=== PATIENT | female | born 1980 | race Two or more races ===

== ENCOUNTER 2018-08-10 21:13 | Emergency (ER) | payer OTHER ==
[~2018-08-10] VITALS: Ht 160 cm; Wt 79.4 kg
[~2018-08-10 21:13] MED LIST: 12-HOUR CO30 MG/5 ML PO; ALBU90OI; ALBU90OI6 INH; Bactrim Ds Tab1 EACH PO; CYCL10 PO; HYDR1TAB94 PO; Norco 5-325 Ta1 EACH PO; OXYACE5T PO; Percocet 5-3251 EACH PO; RXOXYACE PO; Valium5 MG PO
[2018-08-11 00:47] LABS: BASOPHILS ABSOLUTE AUTO 0.04 K/mm3 (0.00-0.23); BASOPHILS PERCENT AUTO 0 % (0-2); EOSINOPHILS ABSOLUTE AUTO 0.18 K/mm3 (0.00-0.68); EOSINOPHILS PERCENT AUTO 1 % (0-6); Hematocrit 42.4 % (33.0-51.0); Hemoglobin 14.2 g/dL (11.5-16.0); IMMATURE GRAN ABSOLUTE AUTO 0.04 K/mm3 (0.00-0.10); IMMATURE GRAN PERCENT AUTO 0 % (0-1); LYMPHOCYTES ABSOLUTE AUTO 2.29 K/mm3 (0.84-5.20); LYMPHOCYTES PERCENT AUTO 17 % (21-46); MONOCYTES PERCENT AUTO 7 % (4-13); Mean Corpuscular HGB 31.8 pg (26.0-34.0); Mean Corpuscular HGB Conc 33.5 g/dL (31.5-36.5); Mean Corpuscular Volume 95 fL (80-100); Mean Platelet Volume 11.9 fL (9.1-12.4); NEUTROPHILS PERCENT AUTO 74 % (41-73); Platelet Count 206 K/mm3 (150-400); RDW Coefficient Variation 12.2 % (11.7-14.2); RDW Standard Deviation 43.1 fL (35.1-46.3); Red Blood Cell Count 4.46 M/mm3 (3.80-5.20); White Blood Cell Count 13.75 K/mm3 (4.00-11.30)
[2018-08-11] MEDS ORDERED: Norco 5-325 Ta1 EACH PO (01:03)
[2018-08-11] MEDS ORDERED: Bactrim Ds Tab1 EACH PO (01:03)
[2018-08-11] MEDS ORDERED: IBUP800 PO (01:03)
[2018-08-11] MEDS ORDERED: CEPH500 PO (01:03)
[2018-08-11 01:04] LABS: Anion Gap 9 mmol/L (6-16); Blood Urea Nitrogen 16 mg/dL (8-24); Bun/Creatinine Ratio 21.9 (12.0-20.0); CO2, Blood 24 mmol/L (21-32); Chloride, Blood 109 mmol/L (98-108); Creatinine, Blood 0.73 mg/dL (0.40-1.00); Glomerular Filtration Rate >60 (60-); Glucose, Blood 102 mg/dL (70-99); Potassium, Blood 3.4 mmol/L (3.5-5.5); Sodium, Blood 142 mmol/L (136-145)
[2018-10-04] MEDS ORDERED: Citalopram HBr10 MG PO (14:32)
[2018-10-04] MEDS ORDERED: LISI20 PO (14:32)
[2018-10-04] MEDS ORDERED: BACL10 PO (14:33)
[2018-10-04] MEDS ORDERED: NAPR500 PO (14:33)
[2018-10-04] MEDS ORDERED: TRAM50 PO (14:33)
== END 2018-08-11 01:30 | disposition home or self-care (01) ==
LOC: ER 21:13
PROVIDERS: Emergency Medicine
DX: L03.115 Cellulitis of right lower limb (principal); I10 Essential (primary) hypertension
CPT/HCPCS: 36415; 80048; 85025; 93971; 96365; 96375; 99284-25; A9270; J0690; J1885

== ENCOUNTER 2018-10-11 11:53 | Day surgery (SDC) | payer OTHER ==
[~2018-10-11] VITALS: Ht 160 cm; Wt 78.3 kg
[~2018-10-11 11:53] MED LIST changes: +BACL10 PO; +CEPH500 PO; +Citalopram HBr10 MG PO; +IBUP800 PO; +LISI20 PO; +NAPR500 PO; +TRAM50 PO
[2018-10-11] MEDS ORDERED: ALBU90OI (12:56)
--- NOTE | 2018-10-11 13:39 | NUR ---
10/11/18 1339 Asad Garcia LATE ENTRY-1319 DR GLASS IN ROOM AND TIME OUT DONE. DR GLASS INJECTED 0.5% MARCAINE WITH EPINEPHRINE 1:200,000 10ML IN RIGHT HAND AND WRIST. PATIENT TOLERATED THE PROCEDURE WELL.
== END 2018-10-11 14:52 | disposition home or self-care (01) ==
LOC: ORSCSDS 11:53
PROVIDERS: Orthopaedic Surgery
PROC: 01N54ZZ Release Median Nerve, Percutaneous Endoscopic Approach (ICD-10-PCS; principal; 2018-10-11 13:00)
DX: G56.01 Carpal tunnel syndrome, right upper limb (principal); I10 Essential (primary) hypertension; J45.909 Unspecified asthma, uncomplicated; G35 Multiple sclerosis; Z79.899 Other long term (current) drug therapy
CPT/HCPCS: J0690; J2250; J7120

== ENCOUNTER 2019-02-07 20:45 | Inpatient (IN) | payer OTHER ==
[~2019-02-07] VITALS: Ht 160 cm; Wt 88.0 kg
[2019-02-07 21:27] LABS: Source, Urine Clean Catch
[2019-02-07 21:31] LABS: Appearance, Urine Clear (Clear); Bilirubin, Urine Neg (Neg); Blood, Urine Neg (Neg); Color, Urine Yellow (P-Yellow); Glucose Qualitative, Urine Neg (Neg); Ketones, Urine 1+ (Neg); Leukocyte Esterase, Urine 1+ (Neg); Nitrite, Urine Neg (Neg); Protein, Urine Neg (Neg); Urobilinogen, Urine NORM (Normal)
[2019-02-07 21:40] LABS: Bacteria Few /hpf; Red Blood Cells, Urine Not Seen /hpf (0-2); Squamous Epithelial Cells Rare /hpf (Few); White Blood Cells, Urine 0-2 /hpf (0-5)
[2019-02-07 22:14] LABS: BASOPHILS ABSOLUTE AUTO 0.08 K/mm3 (0.00-0.23); BASOPHILS PERCENT AUTO 1 % (0-2); EOSINOPHILS ABSOLUTE AUTO 0.24 K/mm3 (0.00-0.68); EOSINOPHILS PERCENT AUTO 3 % (0-6); Hematocrit 40.1 % (33.0-51.0); Hemoglobin 13.3 g/dL (11.5-16.0); IMMATURE GRAN ABSOLUTE AUTO 0.03 K/mm3 (0.00-0.10); IMMATURE GRAN PERCENT AUTO 0 % (0-1); LYMPHOCYTES ABSOLUTE AUTO 4.25 K/mm3 (0.84-5.20); LYMPHOCYTES PERCENT AUTO 47 % (21-46); MONOCYTES ABSOLUTE AUTO 0.81 K/mm3 (0.16-1.47); MONOCYTES PERCENT AUTO 9 % (4-13); Mean Corpuscular HGB 31.5 pg (26.0-34.0); Mean Corpuscular HGB Conc 33.2 g/dL (31.5-36.5); Mean Corpuscular Volume 95 fL (80-100); NEUTROPHILS ABSOLUTE AUTO 3.71 K/mm3 (1.96-9.15); NEUTROPHILS PERCENT AUTO 41 % (41-73); Platelet Count 257 K/mm3 (150-400); RDW Coefficient Variation 12.5 % (11.7-14.2); RDW Standard Deviation 43.5 fL (35.1-46.3); Red Blood Cell Count 4.22 M/mm3 (3.80-5.20); White Blood Cell Count 9.12 K/mm3 (4.00-11.30)
[2019-02-07 22:33] LABS: Alanine Aminotransfer (ALT/SGP 21 U/L (12-78); Albumin, Blood 3.8 g/dL (3.4-5.0); Albumin/Globulin Ratio 1.1 (0.8-1.8); Alk Phos 78 U/L (50-136); Anion Gap 5 mmol/L (6-16); Aspartate Aminotrans (AST/SGOT 6 U/L (12-37); Bilirubin, Total 0.2 mg/dL (0.1-1.0); Blood Urea Nitrogen 20 mg/dL (8-24); Bun/Creatinine Ratio 22.6 (12.0-20.0); CO2, Blood 27 mmol/L (21-32); Calcium, Blood 8.5 mg/dL (8.5-10.1); Chloride, Blood 108 mmol/L (98-108); Creatinine, Blood 0.89 mg/dL (0.40-1.00); Globulin, Blood 3.6 g/dL (2.2-4.0); Glomerular Filtration Rate >60 (60-); Glucose, Blood 84 mg/dL (70-99); Potassium, Blood 3.7 mmol/L (3.5-5.5); Sodium, Blood 140 mmol/L (136-145); Total Protein, Blood 7.4 g/dL (6.4-8.2)
--- NOTE | 2019-02-08 06:16 | NUR ---
SHIFT SUMMARY PT NEW ADMIT THIS AM. [id number]. NPO. DISCOMFORT AT TOLERABLE LEVEL SINCE ADMISSION TO FLOOR. NO NAUSEA/EMESIS. PT REPORTING DISCOMFORT X2 MONTHS, INCREASED PAST 2 WEEKS. VS NOTED. PT ORIENTED TO ROOM + CALL LIGHT USE. PT RESTING WELL THIS AM, NADN WITH CALL LIGHT IN REACH.
--- NOTE | 2019-02-08 06:55 | NUR ---
recvd report from previous shift RN Julián, pt sleeping in room, call light within reach, bed in lowest position, bed rails up x 2
--- NOTE | 2019-02-08 08:30 | NUR ---
dr keller rounding on pt
--- NOTE | 2019-02-08 12:00 | NUR ---
PT TRANSFERRED TO DAYSURGERY VIA STRETCHER
--- NOTE | 2019-02-08 12:08 | NUR ---
History, Chart, Medications and Allergies reviewed before start of procedure.Lungs clear T/O to Auscultation. Pre-Op teaching done. Pt verbalizes understanding. Patient confirms NPO status and agrees with scheduled surgery. PT'S URINE HAD SPECIFIC GRAVITY OF 1.005. SERUM HCG WAS ORDERED AND PERFORMED. EKG ALSO PERFORMED STANDARD ORDER OF ANESTHESIOLOGIST.
--- NOTE | 2019-02-08 14:48 | NUR ---
DR. JIMENEZ, DR. THOMPSON AND OR, RN HAVE BEEN AT BEDSIDE. PT SET FOR 1500 PROCEDURE. PT COMFORTABLE
--- NOTE | 2019-02-08 17:19 | NUR ---
FOLLOWED UP WITH CAR WASHER, PT STILL IN SURGERY. UPDATED PT'S FAMILY
--- NOTE | 2019-02-08 18:35 | NUR ---
pt returned to room via stretcher, a/o x 4, pleasant/cooperative, post op vs commenced, BP 173/112, provided analgesia per MAR. family in room with pt. pt tolerating clear liquid, no nausea.
--- NOTE | 2019-02-08 19:40 | NUR ---
1939: PT JUSTUS INSERTION SITE DRESSING CHANGED FOR MODERATE SATURATION WITH SANGUINOUS DRAINAGE AND OOZING AT INSERTION SITE. JUSTUS EMPTIED AND SET TO BULB SUCTION; TUBING STRIPPED WELL. LINENS CHANGED, PT MOVES WELL IN BED. CONTINUE TO MONITOR DRAINAGE APPEARANCE AND AMOUNT. PT C/O MILD HEADACHE AND IS ACTIVELY BELCHING; DENIES NAUSEA, DIZZINESS, SOB, CHEST PRESSURE, NUMBNESS/TINGLING.
--- NOTE | 2019-02-09 04:23 | NUR ---
SHIFT SUMMARY POD 1 S/P LAP MANDO. ABD DRESSINGS C/D/I WITH NO DRAINAGE. JUSTUS IN PLACE, COMPRESSED, AND DRAINING SANGUINEOUS FLUID. WILL CONT TO MONITOR FOR DRAINAGE AND CHANGE DRESSING PRN. PT AMBULATING IND IN HALLWAY AND ROOM. TOLERATING CL DIET. REPORTS PASSING FLATUS AND VOIDING WITHOUT DIFFICULTY. PAIN MANAGED WITH PO MEDICATIONS, AMBULATION, REPOSITIONING, AND HEAT THERAPY. HTN APPEARS RESOLVED AFTER RESUMING HOME MEDICATION. PT CURRENTLY RESTING IN ROOM WITH CALL LIGHT WITHIN REACH.
--- NOTE | 2019-02-09 05:00 | NUR ---
JUSTUS DRAIN JUSTUS DRESSING CHANGED 4 TIMES DURING SHIFT R/T DRAINAGE AROUND THE BOTTOM OF THE INSERTION SITE. JUSTUS IN PLACE AND COMPRESSED WITH SANGUINEOUS DRAINAGE. PT DENIES ANY DISCOMFORT R/T DRAIN. AT 0500 PT WAS GOING TO THE BATHROOM WHEN JUSTUS PRODUCED GUSH THAT RESULTED IN SATURATED DRESSING. PT BP DROPPED TO 86/63 BUT QUICKLY RETURNED TO 107/68. SINCE THAT EPISODE DRESSING HAS BEEN C/D/I W/JUSTUS BULB COMPRESSED AND DRAINING. PT IS CURRENTLY RESTING IN BED WITH NO COMPLAINTS. REPORT GIVEN TO ONCOMING RN.
[2019-02-09 05:46] LABS: Alanine Aminotransfer (ALT/SGP 32 U/L (12-78); Albumin, Blood 3.4 g/dL (3.4-5.0); Alk Phos 58 U/L (50-136); Anion Gap 10 mmol/L (6-16); Aspartate Aminotrans (AST/SGOT 26 U/L (12-37); Bilirubin, Total 0.9 mg/dL (0.1-1.0); Blood Urea Nitrogen 10 mg/dL (8-24); Bun/Creatinine Ratio 16.4 (12.0-20.0); CO2, Blood 22 mmol/L (21-32); Calcium, Blood 8.7 mg/dL (8.5-10.1); Chloride, Blood 102 mmol/L (98-108); Creatinine, Blood 0.61 mg/dL (0.40-1.00); Globulin, Blood 3.4 g/dL (2.2-4.0); Glomerular Filtration Rate >60 (60-); Glucose, Blood 140 mg/dL (70-99); Potassium, Blood 4.4 mmol/L (3.5-5.5); Sodium, Blood 134 mmol/L (136-145); Total Protein, Blood 6.8 g/dL (6.4-8.2)
[2019-02-09 08:54] LABS: Hematocrit 34.4 % (33.0-51.0); Hemoglobin 11.4 g/dL (11.5-16.0)
[2019-02-09 10:10] LABS: Hematocrit 31.4 % (33.0-51.0); Hemoglobin 10.4 g/dL (11.5-16.0)
--- NOTE | 2019-02-09 10:28 | NUR ---
BLEEDING AROUND JUSTUS SITE DRESSING AROUND JUSTUS SITE HAS BEEN CHANGED X3 SINCE CARE ASSUMED OF THE PT. BLEEDING APPEARS TO BE INCREASING AND IS A SLOW OOZE AT THIS TIME. WILL CONTINUE TO MONITOR AND NOTIFY DR. JIMENEZ.
--- NOTE | 2019-02-09 10:41 | NUR ---
DR. BARBARA CHANCEFIED OF OOZING FROM SITE AND CURRENT H&H. WILL CONTINUE TO MONITOR FOR CHANGES. WILL ASSESS VS Q HOUR PER DR. BRUCE.
[2019-02-09 11:59] LABS: Hematocrit 28.3 % (33.0-51.0); Hemoglobin 9.4 g/dL (11.5-16.0)
[2019-02-09 14:16] LABS: Hematocrit 30.7 % (33.0-51.0); Hemoglobin 10.4 g/dL (11.5-16.0)
--- NOTE | 2019-02-09 18:12 | NUR ---
SHIFT SUMMARY PAIN HAS BEEN MANAGED WITH PO PAIN MEDICATION THIS SHIFT. BLEEDING FROM AROUND JUSTUS DRAIN HAS SLOWED, AND OUTPUT IN JUSTUS DRAIN HAS DECREASED T/O THE SHIFT. VS MONITORING HAS BEEN INCREASED. INCREASED MONITORING OF H&H. PT IS TOLERATING CLEAR LIQUIDS WELL. VSS, WILL MONITOR UNTIL REPORT TO ONCOMING RN.
[2019-02-09 18:24] LABS: Hematocrit 29.7 % (33.0-51.0); Hemoglobin 9.7 g/dL (11.5-16.0)
[2019-02-10 04:10] LABS: BASOPHILS ABSOLUTE AUTO 0.04 K/mm3 (0.00-0.23); BASOPHILS PERCENT AUTO 0 % (0-2); EOSINOPHILS ABSOLUTE AUTO 0.08 K/mm3 (0.00-0.68); EOSINOPHILS PERCENT AUTO 1 % (0-6); Hematocrit 25.9 % (33.0-51.0); Hemoglobin 8.3 g/dL (11.5-16.0); IMMATURE GRAN ABSOLUTE AUTO 0.04 K/mm3 (0.00-0.10); IMMATURE GRAN PERCENT AUTO 0 % (0-1); LYMPHOCYTES ABSOLUTE AUTO 3.32 K/mm3 (0.84-5.20); LYMPHOCYTES PERCENT AUTO 35 % (21-46); MONOCYTES ABSOLUTE AUTO 0.86 K/mm3 (0.16-1.47); MONOCYTES PERCENT AUTO 9 % (4-13); Mean Corpuscular Volume 97 fL (80-100); NEUTROPHILS ABSOLUTE AUTO 5.14 K/mm3 (1.96-9.15); NEUTROPHILS PERCENT AUTO 54 % (41-73); Platelet Count 186 K/mm3 (150-400); RDW Coefficient Variation 12.7 % (11.7-14.2); RDW Standard Deviation 45.1 fL (35.1-46.3); Red Blood Cell Count 2.68 M/mm3 (3.80-5.20); White Blood Cell Count 9.48 K/mm3 (4.00-11.30)
[2019-02-10 04:24] LABS: International Normalized Ratio 1.1; Prothrombin Time Results 11.6 Sec (9.7-11.5)
[2019-02-10 04:32] LABS: Alanine Aminotransfer (ALT/SGP 24 U/L (12-78); Alk Phos 48 U/L (50-136); Anion Gap 7 mmol/L (6-16); Aspartate Aminotrans (AST/SGOT 14 U/L (12-37); Bilirubin, Total 0.6 mg/dL (0.1-1.0); Blood Urea Nitrogen 9 mg/dL (8-24); Bun/Creatinine Ratio 14.3 (12.0-20.0); CO2, Blood 25 mmol/L (21-32); Chloride, Blood 109 mmol/L (98-108); Creatinine, Blood 0.63 mg/dL (0.40-1.00); Globulin, Blood 2.9 g/dL (2.2-4.0); Glomerular Filtration Rate >60 (60-); Glucose, Blood 102 mg/dL (70-99); Potassium, Blood 3.6 mmol/L (3.5-5.5); Sodium, Blood 141 mmol/L (136-145); Total Protein, Blood 5.9 g/dL (6.4-8.2)
--- NOTE | 2019-02-10 07:32 | NUR ---
SUMMARY DR JIMENEZ ROUNDING THIS AM. ORDERS FOR REPEAT LAB 10 AM AND WILL DECIDE AT THAT TIME IF CHANGES. PT ALERT. DISCUSSED PLAN OF CARE WITH DR JIMENEZ.
[2019-02-10 13:43] LABS: Hemoglobin 8.8 g/dL (11.5-16.0)
--- NOTE | 2019-02-10 15:32 | NUR ---
DR. JIMENEZ AWARE OF H&H OF 8.8 AND 27.0. VSS. WILL CONTINUE TO MONITOR.
--- NOTE | 2019-02-10 18:16 | NUR ---
SHIFT SUMMARY PAIN HAS BEEN MANAGED WITH PO PAIN MEDICATION. PT HAS HAD NO FURTHER BLEEDING AROUND JUSTUS SITE AND DRAINAGE INTO JUSTUS HAS DECREASED. PT REPORTS SHE HAS PASSED FLATUS. SHE IS TOLERATING A REGULAR DIET. VSS. WILL CONTINUE TO MONITOR.
--- NOTE | 2019-02-11 00:24 | NUR ---
ASSUMED CARE OF PT. LYING IN BED, NO DISTRESS NOTED. PT DENIES NEEDS AT THIS TIME. WILL CONT TO MONITOR AND TX PER ORDERS.
[2019-02-11 04:51] LABS: BASOPHILS ABSOLUTE AUTO 0.04 K/mm3 (0.00-0.23); BASOPHILS PERCENT AUTO 1 % (0-2); EOSINOPHILS PERCENT AUTO 1 % (0-6); Hematocrit 23.6 % (33.0-51.0); Hemoglobin 7.7 g/dL (11.5-16.0); IMMATURE GRAN ABSOLUTE AUTO 0.04 K/mm3 (0.00-0.10); IMMATURE GRAN PERCENT AUTO 1 % (0-1); LYMPHOCYTES ABSOLUTE AUTO 2.79 K/mm3 (0.84-5.20); LYMPHOCYTES PERCENT AUTO 36 % (21-46); MONOCYTES ABSOLUTE AUTO 0.67 K/mm3 (0.16-1.47); MONOCYTES PERCENT AUTO 9 % (4-13); Mean Corpuscular HGB 31.8 pg (26.0-34.0); Mean Corpuscular HGB Conc 32.6 g/dL (31.5-36.5); Mean Corpuscular Volume 98 fL (80-100); Mean Platelet Volume 11.3 fL (9.1-12.4); NEUTROPHILS ABSOLUTE AUTO 4.11 K/mm3 (1.96-9.15); NEUTROPHILS PERCENT AUTO 53 % (41-73); Platelet Count 184 K/mm3 (150-400); RDW Coefficient Variation 12.5 % (11.7-14.2); RDW Standard Deviation 44.7 fL (35.1-46.3); Red Blood Cell Count 2.42 M/mm3 (3.80-5.20); White Blood Cell Count 7.75 K/mm3 (4.00-11.30)
[2019-02-11 05:08] LABS: Alanine Aminotransfer (ALT/SGP 109 U/L (12-78); Albumin, Blood 2.9 g/dL (3.4-5.0); Albumin/Globulin Ratio 0.9 (0.8-1.8); Alk Phos 102 U/L (50-136); Anion Gap 6 mmol/L (6-16); Aspartate Aminotrans (AST/SGOT 83 U/L (12-37); Bilirubin, Total 0.3 mg/dL (0.1-1.0); Blood Urea Nitrogen 12 mg/dL (8-24); CO2, Blood 26 mmol/L (21-32); Calcium, Blood 8.2 mg/dL (8.5-10.1); Chloride, Blood 106 mmol/L (98-108); Creatinine, Blood 0.57 mg/dL (0.40-1.00); Globulin, Blood 3.1 g/dL (2.2-4.0); Glomerular Filtration Rate >60 (60-); Glucose, Blood 96 mg/dL (70-99); Potassium, Blood 3.7 mmol/L (3.5-5.5); Sodium, Blood 138 mmol/L (136-145)
--- NOTE | 2019-02-11 07:32 | NUR ---
POD 3 S/P LAP MANDO. PT HR TACHY 90'S, OTHER VSS. JUSTUS PUTTING OUT DARK SANG DRNG; APPX 50 ML THIS SHIFT. ABD SOFT TO PALP. NO ACTIVE DRNG FROM INCISIONS. PT JOSE FRANCISCO REG PO, NO C/O N/V, REP +FLATUS AND SMALL BM. PAIN MGD W/PO PAIN MEDS W/REP RELIEF. PT AMB INDEP IN ROOM, IS WEAK WHEN UP, DENIES DIZZINESS. MD IN TO SEE PT THIS AM. BEDSIDE REPORT GIVEN TO DAY RN.
[2019-02-11 12:05] LABS: Hematocrit 25.5 % (33.0-51.0); Hemoglobin 8.3 g/dL (11.5-16.0)
--- NOTE | 2019-02-11 16:53 | NUR ---
SHIFT SUMMARY PT HAS HAD WELL CONTROLLED PAIN, UP IND IN ROOM AND HALLWAY, TOLERATING CLEAR LQS AND ADVANCED TO REG FOR DINNER. PT VERY EXCITED ABOUT THAT. JUSTUS DRAIN OUTPUT CONTINUES TO TREND DOWN.
--- NOTE | 2019-02-12 05:06 | NUR ---
SHIFT SUMMARY ABDOMEN IS DESTENDED, HYPOACTIVE, AND PAINFUL. NO VAUSEA, NO VOMITING. JUSTUS DRAIN TO THE RT LQUADRANT. 50CC, SANGUINEOUS FLUID OUT OVER THE SHIFT. PT IS INDEPENDENT IN THE ROOM. THE DRESSING SURROUNDING THE JUSTUS SITE IS MARKED IN ONE CORNER WITH SANGUINEOUS FLUID THAT HAS NOT CHANGED SINCE THE BEGINNING OF THE SHIFT. TREATED WITH IV PAIN MEDICATION ONCE THIS SHIFT FOR INCREASED AMOUNT OF PAIN AFTER PATIENT WAS ABLE TO EAT REAL FOOD FOR DINNER. THIS PAIN DID SUBSIDE THROUGHOUT THE NIGHT.
[2019-02-12 07:56] LABS: Hematocrit 28.5 % (33.0-51.0); Hemoglobin 9.2 g/dL (11.5-16.0)
--- NOTE | 2019-02-12 16:09 | NUR ---
DR JIMENEZ HERE TO SEE PT.
--- NOTE | 2019-02-12 16:55 | NUR ---
SHIFT SUMMARY PT EATING AND DRINKING. VOIDING. REPORTS PAIN DOING BETTER TODAY. PT REPORTS UP AND AMBULATING TODAY. FAMILY TO SEE PT TODAY. PT BEEN ASSISTED WITH ADL'S PRN.
[2019-02-13 04:27] LABS: Hematocrit 27.6 % (33.0-51.0)
[2019-02-13 04:45] LABS: Alanine Aminotransfer (ALT/SGP 81 U/L (12-78); Albumin/Globulin Ratio 0.8 (0.8-1.8); Alk Phos 147 U/L (50-136); Anion Gap 3 mmol/L (6-16); Aspartate Aminotrans (AST/SGOT 62 U/L (12-37); Bilirubin, Total 0.5 mg/dL (0.1-1.0); Blood Urea Nitrogen 9 mg/dL (8-24); Bun/Creatinine Ratio 16.6 (12.0-20.0); CO2, Blood 29 mmol/L (21-32); Calcium, Blood 8.7 mg/dL (8.5-10.1); Chloride, Blood 105 mmol/L (98-108); Creatinine, Blood 0.54 mg/dL (0.40-1.00); Globulin, Blood 3.8 g/dL (2.2-4.0); Glomerular Filtration Rate >60 (60-); Glucose, Blood 104 mg/dL (70-99); Potassium, Blood 3.9 mmol/L (3.5-5.5); Sodium, Blood 137 mmol/L (136-145); Total Protein, Blood 6.8 g/dL (6.4-8.2)
--- NOTE | 2019-02-13 05:30 | NUR ---
SHIFT SUMMARY: PT S/P LAP MANDO. GAUZE AND SS CDI TO ABD. JUSTUS WITH SMALL AMOUNT OF BLOODY DRG. PT WILL MOST LIKELY DISCHARGE WITH JUSTUS AND REPORTS ADEQUATE UNDERRSTANDING ON HOW TO EMPTY JUSTUS INDEPENDENTLY. PT INDEPENDENT IN ROOM AND AMBULATING HALLWAY. PAIN MANAGED WITH 2 NORCO PER EMAR. JOSE FRANCISCO PO. DENIES N/V. PT REPORTS PASSING GAS AND HAS HAD A BM SINCE SURGERY. ACTIVE BT X4.
--- NOTE | 2019-02-13 17:51 | NUR ---
PT C/O INTERMITTANT NAUSEA TODAY, IMPROVED WITHOUT MEDICATION, MEALS ARE TOLERATED BY PT. PAIN CONTROLLED WITH PRN MEDS, SEE EMAR. JUSTUS DRAIN EMPTIED 40ML THIS SHIFT, STILL SANGUINEOUS IN COLOR. PT TOLERATING AMBULATION IN HALLS WITHOUT ASSIST. PT STILL PASSING GAS AND HAD A BM THIS EVENING.
[2019-02-14 04:22] LABS: Hematocrit 27.5 % (33.0-51.0)
[2019-02-14 04:45] LABS: Alanine Aminotransfer (ALT/SGP 63 U/L (12-78); Albumin/Globulin Ratio 0.8 (0.8-1.8); Alk Phos 135 U/L (50-136); Anion Gap 6 mmol/L (6-16); Aspartate Aminotrans (AST/SGOT 29 U/L (12-37); Bilirubin, Total 0.4 mg/dL (0.1-1.0); Blood Urea Nitrogen 14 mg/dL (8-24); Bun/Creatinine Ratio 24.4 (12.0-20.0); CO2, Blood 27 mmol/L (21-32); Calcium, Blood 8.6 mg/dL (8.5-10.1); Chloride, Blood 104 mmol/L (98-108); Creatinine, Blood 0.57 mg/dL (0.40-1.00); Globulin, Blood 3.6 g/dL (2.2-4.0); Glomerular Filtration Rate >60 (60-); Glucose, Blood 110 mg/dL (70-99); Potassium, Blood 3.7 mmol/L (3.5-5.5); Sodium, Blood 137 mmol/L (136-145); Total Protein, Blood 6.6 g/dL (6.4-8.2)
[2019-02-14] MEDS ORDERED: HYDR1TAB94 PO (09:30)
[2019-02-14] MEDS ORDERED: ONDA4ODT PO (09:31)
--- NOTE | 2019-02-14 14:00 | NUR ---
DISCHARGE INSTRUCTIONS GONE OVER WITH PT. INSTRUCTED PT ON JUSTUS DRAIN MANAGEMENT AND PT WAS ABLE TO DEMENSTRATE CARE. PROVIDED PT WITH PRESCRIPTIONS AND DISCHARGE PAPERS. PT AMBULATED OUT AND WAS ESCORTED BY RN AND FAMILY.
== END 2019-02-14 14:00 | disposition home or self-care (01) | DRG 417 ==
LOC: ER 20:45 → SURS 20:46 → ER 02-08 01:38 → SURS 02-08 02:18
PROVIDERS: Physician Assistant; ADMIT Surgery
PROC: BF131ZZ Fluoroscopy of Gallbladder and Bile Ducts using Low Osmolar Contrast (ICD-10-PCS; 2019-02-08)
PROC: 0FT44ZZ Resection of Gallbladder, Percutaneous Endoscopic Approach (ICD-10-PCS; principal; 2019-02-08 12:00)
DX: K80.00 Calculus of gallbladder with acute cholecystitis without obstruction (principal); K66.1 Hemoperitoneum; I95.9 Hypotension, unspecified; G35 Multiple sclerosis; I10 Essential (primary) hypertension; J45.909 Unspecified asthma, uncomplicated; E66.9 Obesity, unspecified; Z87.891 Personal history of nicotine dependence; Z68.34 Body mass index [BMI] 34.0-34.9, adult
CPT/HCPCS: 36415; 74177; 74300; 76705; 80053; 81001; 83690; 84702; 85014; 85018; 85025; 85610; 86850; 86900; 86901; 87086; 88304; 93005; 93010; 96365; 96375; 99285-25; A9270-GY; C1729; G0378; J0694; J0697; J1100; J1885; J2250; J2405; J2704; J3010; J7030; J7120; Q9967

== ENCOUNTER 2020-09-16 08:24 | Day surgery (SDC) | payer OTHER | END 2020-09-16 10:30 | disposition home or self-care (01) | LOC: ORSCSDS 08:24 | PROC: 01N54ZZ Release Median Nerve, Percutaneous Endoscopic Approach (ICD-10-PCS; principal; 2020-09-16) | DX: G56.02 Carpal tunnel syndrome, left upper limb (principal); I10 Essential (primary) hypertension; J45.909 Unspecified asthma, uncomplicated; E66.9 Obesity, unspecified; Z68.31 Body mass index [BMI] 31.0-31.9, adult; Z79.899 Other long term (current) drug therapy ==

== ENCOUNTER → 2021-09-08 | Outpatient (CLI) | payer OTHER ==
[~2021-09-08] MED LIST changes: +ACETAMINOPHEN500 MG PO; +Augmentin 875-1 EACH PO; +Budeprion Xl300 MG; +ONDA4ODT PO; +PROAIR DIGIHAL90 MCG; +TRAZ50 PO
[2021-09-09 09:47] LABS: Candida species (DNA Probe) Negative (NEGATIVE); G. vaginalis (DNA Probe) Negative (NEGATIVE); T. vaginalis (DNA Probe) Negative (NEGATIVE)
[2021-09-10 02:10] LABS: CHLAMYDIA TRACHOMATIS, NAA Negative (Negative)
== END | disposition home or self-care (01) ==
LOC: LAB 14:18 → LAB SHORT 14:18
PROVIDERS: Nurse Practitioner Family
DX: Z01.419 Encounter for gynecological examination (general) (routine) without abnormal findings (principal); N89.8 Other specified noninflammatory disorders of vagina
CPT/HCPCS: 87070; 87205; 87480; 87491; 87510; 87591; 87660; 88175

== ENCOUNTER 2022-09-01 07:42 | Emergency (ER) | payer OTHER ==
[~2022-09-01] VITALS: Ht 165.1 cm; Wt 81.7 kg
[2022-09-01 08:27] LABS: BASOPHILS ABSOLUTE AUTO 0.06 K/mm3 (0.00-0.23); BASOPHILS PERCENT AUTO 1 % (0-2); EOSINOPHILS PERCENT AUTO 0 % (0-6); Hematocrit 42.5 % (33.0-51.0); Hemoglobin 14.9 g/dL (11.5-16.0); IMMATURE GRAN ABSOLUTE AUTO 0.06 K/mm3 (0.00-0.10); IMMATURE GRAN PERCENT AUTO 1 % (0-1); LYMPHOCYTES ABSOLUTE AUTO 1.62 K/mm3 (0.84-5.20); LYMPHOCYTES PERCENT AUTO 12 % (21-46); MONOCYTES PERCENT AUTO 6 % (4-13); Mean Corpuscular HGB Conc 35.1 g/dL (31.5-36.5); Mean Corpuscular Volume 97 fL (80-100); Mean Platelet Volume 10.8 fL (9.1-12.4); NEUTROPHILS ABSOLUTE AUTO 10.57 K/mm3 (1.96-9.15); NEUTROPHILS PERCENT AUTO 81 % (41-73); Platelet Count 286 K/mm3 (150-400); RDW Coefficient Variation 12.2 % (11.7-14.2); RDW Standard Deviation 44.2 fL (35.1-46.3); Red Blood Cell Count 4.38 M/mm3 (3.80-5.20); White Blood Cell Count 13.11 K/mm3 (4.00-11.30)
[2022-09-01 08:44] LABS: Albumin, Blood 3.8 g/dL (3.4-5.0); Albumin/Globulin Ratio 0.9 (0.8-1.8); Bilirubin, Total 1.2 mg/dL (0.1-1.0); Bun/Creatinine Ratio 14.5 (12.0-20.0); Calcium, Blood 9.5 mg/dL (8.5-10.1); Creatinine, Blood 0.76 mg/dL (0.40-1.00); Globulin, Blood 4.4 g/dL (2.2-4.0); Potassium, Blood 3.7 mmol/L (3.5-5.5); Total Protein, Blood 8.2 g/dL (6.4-8.2)
[2022-09-01] MEDS ORDERED: LEVO750 PO (09:28)
[2022-09-01] MEDS ORDERED: ONDA4ODT MM (09:28)
[2022-09-01 10:31] VITALS: BP 145/104
== END 2022-09-01 11:01 | disposition home or self-care (01) ==
LOC: ER 07:42
PROVIDERS: Physician Assistant
DX: K52.9 Noninfective gastroenteritis and colitis, unspecified (principal); I10 Essential (primary) hypertension; J45.909 Unspecified asthma, uncomplicated; G35 Multiple sclerosis; Z79.899 Other long term (current) drug therapy
CPT/HCPCS: 74177; 80053; 83690; 84703; 85025; 96365-59; 96375; 99284-25; J1885; J1956; J2405; J7030; Q9967

== ENCOUNTER → 2023-02-28 | Outpatient (CLI) | payer OTHER ==
[~2023-02-28] MED LIST changes: +LEVO750 PO; +ONDA4ODT MM
== END | disposition home or self-care (01) ==
LOC: LAB 17:36 → LAB SHORT 17:36
DX: R82.90 Unspecified abnormal findings in urine (principal)
CPT/HCPCS: 87077; 87086; 87186

== ENCOUNTER → 2024-01-02 | Outpatient (CLI) | payer OTHER | LOC: LAB 13:36 → LAB SHORT 13:36 | DX: R35.0 Frequency of micturition (principal) | CPT/HCPCS: 87086 ==

== ENCOUNTER → 2024-10-08 | Outpatient (CLI) | payer OTHER ==
[2024-10-08 18:40] LABS: Bacterial Vaginosis PCR Negative (NEGATIVE); Candida Group, PCR NOT DETECTED (NOT DETECT); Candida glabrata-krusei, PCR NOT DETECTED (NOT DETECT)
== END ==
LOC: LAB SHORT 15:30 → LAB 15:30
PROVIDERS: Student in an Organized Health Care Education/Training Program
DX: Z12.4 Encounter for screening for malignant neoplasm of cervix (principal); N89.8 Other specified noninflammatory disorders of vagina
CPT/HCPCS: 81515; 87624; G0145